=== PATIENT | female | born 1965 | race African-American/Black ===

== ENCOUNTER 2016-09-26 08:29 | Emergency (ER) ==
[2016-09-26 08:41] VITALS: BP 138/095
[2016-09-26] MEDS ORDERED: DECADRON IM ONE (09:01)
--- NOTE | 2016-09-26 09:09 | PROVIDER DOCUMENTATION ---
HPI-Musculoskeletal Pain/Inj - GENERAL Chief Complaint: Shoulder Injury Stated Complaint: SHOULDER PAIN Time Seen by Provider: 09/26/16 08:56 Source: patient - HX OF PRESENT ILLNESS-MUSKULOSKELTAL Nature of Presenting Problem: Pt is 51 y/o F presents to the ED with L shoulder pain and L side neck pain. Pt denies recent injury. Pt states she was lifting furniture three days ago. Pt denies BARRY. Quality of Pain: reports: aching Severity in ED: mild Onset/Duration: 3 days ago Timing: still present Modifying Factors: improves with: nothing Any recent injury?: No Locality of Occurance: Home Similar Symptoms Previously?: Yes Recently seen or treated by another doctor?: No - BACK & NECK PAIN/INJURY Back/Neck Pain Location: reports: C-spine (L) Back/Neck Pain Radiation: reports: shoulders (L) Context / Method of Injury: reports: lifting Associated Symptoms: reports: weakness in upper ext (R shoulder). denies: loss of bladder control, loss of bowel control, fever, lower back pain, muscle spasms , numbness in legs/feet, numbness in upper ext, sensory/motor loss, tingling in legs/feet, tingling in upper ext, weakness in legs/feet History of Chronic Neck or Back Pain?: No - UPPER EXTREMITY PAIN/INJURY Extremities Pain Location: shoulder: left (pain ) Context / Method of Injury: reports: other (lifting) Associated Symptoms: reports: weakness in upper ext (L shoulder). denies: muscle spasms, numbness in upper ext, sensory/motor loss, tingling in upper ext Review of Systems - Adult - REVIEW OF SYSTEMS - ADULT Constitutional: reports: no symptoms reported Eyes: reports: no symptoms reported Ears, Nose, Mouth & Throat: reports: no symptoms reported Cardiovascular: reports: no symptoms reported Respiratory: reports: no symptoms reported Gastrointestinal: reports: no symptoms reported Genitourinary: reports: no symptoms reported Musculoskeletal: reports: neck pain (L shoulder), other (L shoulder). denies: bone pain, joint pain Integumentary: reports: no symptoms reported Neurological: reports: no symptoms reported Psychiatric: reports: no symptoms reported Endocrine: reports: no symptoms reported Hematologic/Lymphatic: reports: no symptoms reported Allergic/Immunologic: reports: no symptoms reported All Other Systems: Reviewed and Negative Past History - Adult - PAST MEDICAL HISTORY-ADULT Review of Records: reports: Nursing Assessment Review, Medications Reviewed, Social history reviewed & non-contributory. Major Childhood Illnesses: reports: denies history Cardiovascular: reports: denies history Respiratory: reports: denies history Gastrointestinal: reports: denies history Obstetrical/Gynecological: reports: denies history Genitourinary: reports: denies history Musculoskeletal: reports: arthritis, chronic pain Neurological: reports: denies history Endocrine/Immune: reports: denies history Other Conditions: reports: denies history - PRIOR SURGERIES/PROCEDURES Surgical/Procedure History: reports: hysterectomy, , orthopedic ( extremity) - IMMUNIZATION STATUS Childhood Immunizations: See Nurse Assessment Flu Vaccine: See Nurse Assessment - FAMILY HISTORY Family History: reviewed, not pertinent - SOCIAL HISTORY Smoking: quit greater than 1 year, cigarettes Substance Use: denies Living Situation: family Physical Exam-Injury Related - Physical Exam-Injury Related Initial Vital Signs Reviewed: Yes General Appearance: appears well, alert, no apparent distress Eyes: PERRL/EOMI, pink conjunctivae, fundi clear, no AV nicking Head, Ears, Nose, Mouth & Throat: normocephalic/atraumatic, moist mucous membranes, normal ENT inspection, TMs normal, pharynx normal Neck: non-tender, full range of motion, supple, normal inspection Respiratory: chest non-tender, lungs clear, normal breath sounds, no pleuratic chest pain, no respiratory distress, no accessory muscle use Cardiovascular: normal peripheral pulses, regular rate, rhythm, no edema, no gallop, no JVD, no murmur Peripheral Pulses: radial (R): 2+, radial (L): 2+ Abdominal Exam: normal bowel sounds, non tender, soft, no organomegaly, no pulsatile mass Lymphatic: no adenopathy Back Exam: normal inspection, no CVA tenderness, no vertebral tenderness Extremity: normal gait, no pedal edema, no calf tenderness, normal capillary refill, tenderness (L trapezius muscle). negative: normal range of motion ( limited ROM to L shoulder) Integumentary: normal color, warm/dry Neurologic: grossly normal Psych/Mental Status: normal mood/affect, oriented x 3 Progress - PLAN OF CARE/RESULTS Progress/Plan/Lab Results: Orders Category Date Time Status Dexamethasone [Decadron] Med 09/26/16 09:01 Discontinued 4 mg IM NOW ONE Vital Signs - 24 hr 09/26/16 08:38 Temperature 97.1 F L Pulse Rate 70 Respiratory 20 Rate Blood Pressure 138/095 O2 Sat by Pulse 97 Oximetry Departure - Departure Time of Disposition Order: 09:11 DIAGNOSIS: Strain of left trapezius muscle Qualifiers: Encounter type: initial encounter Qualified Code(s): S46.812A - Strain of other muscles, fascia and tendons at shoulder and upper arm level, left arm, initial encounter Disposition: HOME 01 Certified Medical Emergency: Emergent Condition: Stable Additional Instructions: ED Follow Up Instructions: You have been treated by a care provider in the Emergency Department. These instructions are being provided to you so you can have an understanding of how to care for yourself upon discharge. Upon discharge from the Emergency Department, you are responsible for making arrangements for follow-up care by a physician of your choice. Take all prescribed medications as directed. Return to the Emergency Department immediately for any new or worsening symptoms. You may call the Physician Referral phone number at [phone] to obtain a list of Physicians who are taking new patients. Prescriptions: Methocarbamol [Robaxin-750] 1,500 mg PO Q6-8H PRN PRN #40 tablet PRN Reason: muscle spasm Tramadol [Ultram] 50 mg PO Q8HR #15 tablet Referrals: Tej Shields MD [STAFF PHYSICIAN] - None,PCP [Primary Care Provider] - Forms: Return to School/Parent Work Instructions: Tramadol tablets, Muscle Strain, [id number], Methocarbamol tablets Attestation - Scribe Verification/Attestation Scribe:: Blanca Pennington Acting as Scribe for:: Patricia Burton Scribdarvin documention review:: This chart was documented by a scribe and accurately reflects the service the provider performed and the decisions made by the provider.
== END 2016-09-26 09:37 | disposition home or self-care (01) ==
LOC: P.ED 08:29
DX: S46.812A Strain of other muscles, fascia and tendons at shoulder and upper arm level, left arm, initial encounter (principal); M25.512 Pain in left shoulder; M54.2 Cervicalgia; M62.81 Muscle weakness (generalized); M19.90 Unspecified osteoarthritis, unspecified site; G89.29 Other chronic pain; Z87.891 Personal history of nicotine dependence
CPT/HCPCS: 96372; J1100